=== PATIENT | female | born 1970 | race Hispanic/Latino ===

== ENCOUNTER → 2018-04-30 | Outpatient (CLI) | payer OTHER | END | disposition home or self-care (01) | LOC: RAH 07:33 | PROVIDERS: ATTEND Orthopaedic Surgery | DX: M19.011 Primary osteoarthritis, right shoulder (principal); M25.711 Osteophyte, right shoulder; M75.41 Impingement syndrome of right shoulder | CPT/HCPCS: 73221 ==

== ENCOUNTER 2018-06-22 14:20 | Emergency (ER) | payer OTHER ==
[2018-06-22] MEDS ORDERED: ONDANSETRON ODT 4 MG TAB ONE (14:42)
[2018-06-22 14:55] LABS: APPEARANCE,URINE Clear (CLEAR); BILIRUBIN,URINE Negative (NEGATIVE); COLOR,URINE Yellow (YELLOW); GLUCOSE, URINE (UA) >=1000 mg/dL (NEGATIVE); KETONES,URINE 15 mg/dL (NEGATIVE); LEUKOCYTE ESTERASE ,URINE Negative (NEGATIVE); NITRATE,URINE Negative (NEGATIVE); OCCULT BLOOD,URINE Negative (NEGATIVE); PROTEIN,URINE Negative (NEGATIVE); UROBILINOGEN,URINE 0.2 mg/dL (0.2-1.0)
== END 2018-06-22 15:53 | disposition home or self-care (01) ==
LOC: EDH 14:20
DX: K52.9 Noninfective gastroenteritis and colitis, unspecified (principal); E11.9 Type 2 diabetes mellitus without complications; Z90.710 Acquired absence of both cervix and uterus; Z98.890 Other specified postprocedural states; Z72.0 Tobacco use
CPT/HCPCS: 81003; 87804

== ENCOUNTER 2020-03-06 18:38 | Inpatient (IN) | payer OTHER ==
[~2020-03-06] VITALS: Ht 165.1 cm; Wt 98.9 kg
[2020-03-06] MEDS ORDERED: ONDANSETRON 4MG INJ ONE (19:03)
[2020-03-06] MEDS ORDERED: 0.9%NACL 1000ML 1,000 ML IV ONE (19:04)
[2020-03-06] MEDS ORDERED: ACETAMINOPHEN 325 MG TAB ONE (19:38)
[2020-03-06 19:41] LABS: BASOPHILS % (AUTO) 0.6 % (0.0-5.0); EOSINOPHILS % (AUTO) 1.5 % (0.0-8.0); HEMATOCRIT 45.9 % (36-48); LYMPHOCYTES % (AUTO) 25.2 % (21.0-51.0); MEAN CORPUSCULAR HEMOGLOBIN 28.8 pg (27.0-33.0); MEAN CORPUSCULAR HGB CONC 32.9 g/dL (32.0-36.0); MEAN CORPUSCULAR VOLUME 87.6 fL (79-99); MONOCYTES % (AUTO) 9.5 % (3.0-13.0); NEUTROPHILS % (AUTO) 62.1 % (40.0-77.0); PLATELET COUNT (AUTO) 212 K/uL (130-400); RED BLOOD CELL COUNT(AUTO) 5.24 MIL/uL (4.00-5.50); RED CELL DISTRIBUTION WIDTH 12.4 % (11.0-15.5); WHITE BLOOD COUNT (AUTO) 6.2 K/uL (4.8-10.8)
[2020-03-06 20:01] LABS: CREATININE 0.6 mg/dL (0.5-1.5); POTASSIUM 3.5 mmol/L (3.5-5.1)
[2020-03-06 20:06] LABS: BILIRUBIN,TOTAL 0.4 mg/dL (0.2-1.0); TOTAL PROTEIN, SERUM 7.2 g/dL (6.0-8.3)
[2020-03-06 20:24] LABS: APPEARANCE,URINE Clear (CLEAR); BILIRUBIN,URINE Negative (NEGATIVE); COLOR,URINE Yellow (YELLOW); GLUCOSE, URINE (UA) >=1000 mg/dL (NEGATIVE); KETONES,URINE 40 mg/dL (NEGATIVE); LEUKOCYTE ESTERASE ,URINE Negative (NEGATIVE); NITRATE,URINE Negative (NEGATIVE); OCCULT BLOOD,URINE Negative (NEGATIVE); PH,URINE 6.5 (5.0-8.0); PROTEIN,URINE Negative (NEGATIVE)
[2020-03-06 20:33] LABS: HCG,QUAL RESULT NEGATIVE (NEGATIVE)
[2020-03-06 20:45] LABS: BACTERIA,URINE Rare /HPF (None Seen); RBC,URINE 0-1 /HPF (0-1); SQUAMOUS EPITHELIAL CELL,UR Rare /HPF (0-2); WBC,URINE 0-1 /HPF (0-1); YEAST,URINE BUDDING Rare /HPF (None Seen)
[2020-03-06] MEDS ORDERED: CEFTRIAXONE 1G VIAL ONE (20:45)
[2020-03-06] MEDS ORDERED: AZITHROMYCIN 500MG+NS 250ML 250 ML IV ONE (20:45)
[2020-03-06 21:01] LABS: ABG BASE EXCESS 0.7 mmol/L (-2.0-3.0); ABG HCO3 24.7 mmol/L (21.0-28.0); ABG OXYGEN SATURATION 93.9 % (95.0-99.0); ABG PCO2 38 mmHg (32-45)
[2020-03-06] MEDS ORDERED: DEXAMETHASONE SOD PHOSPHATE 10MG/ML 1ML VIAL ONE (22:23)
[2020-03-06] MEDS ORDERED: DOXYCYCLINE 100MG+NS 250ML IV SCH (23:15)
[2020-03-06] MEDS ORDERED: LUBIPROSTONE 24 MCG CAP PO SCH (23:15)
[2020-03-06] MEDS ORDERED: ONDANSETRON 4MG INJ IV PRN (23:15)
[2020-03-06] MEDS ORDERED: DEXAMETHASONE SOD PHOSPHATE 4 MG/ML 1ML VIAL IVP SCH (23:15)
[2020-03-07] MEDS ORDERED: ERGOCALCIFEROL (VITAMIN D2) 50,000 UNIT CAPSULE ONE (00:15)
[2020-03-07] MEDS ORDERED: DOXYCYCLINE 100MG+NS 250ML 250 ML IV ONE (00:16)
[2020-03-07] MEDS ORDERED: 0.9% NACL 250ML 250 ML IV ONE (02:18)
[2020-03-07 04:39] VITALS: BP 133/80
[2020-03-07 05:30] LABS: ALBUMIN 2.7 g/dL (3.5-5.0); BILIRUBIN,TOTAL 0.3 mg/dL (0.2-1.0); CREATININE 0.6 mg/dL (0.5-1.5); CRP QUANTITATIVE 96.9 mg/L (0.00-9.0); POTASSIUM 4.4 mmol/L (3.5-5.1); TOTAL PROTEIN, SERUM 6.1 g/dL (6.0-8.3)
[2020-03-07] MEDS: INSULIN HUMULIN R 100 UNIT/ML 3ML SQ SCH ×4 (07:04→22:28)
[2020-03-07] MEDS: ZINC SULFATE 220 CAPSULE PO SCH (08:14)
[2020-03-07] MEDS: ENOXAPARIN SODIUM 40 MG/0.4 ML SYRINGE SQ SCH (08:14)
[2020-03-07] MEDS: FAMOTIDINE 20MG VIAL IV SCH ×2 (08:14→22:21)
[2020-03-07] MEDS: ASCORBIC ACID 500 MG TAB PO SCH (08:14)
[2020-03-07 08:44] LABS: HEMOGLOBIN A1C 10.1 % (4.0-6.0)
[2020-03-07 08:55] VITALS: BP 126/78
[2020-03-07] MEDS ORDERED: DOXYCYCLINE 100MG+NS 250ML 250 ML IV SCH (09:00)
[2020-03-07] MEDS: ERGOCALCIFEROL (VITAMIN D2) 50,000 UNIT CAPSULE PO SCH (09:45)
[2020-03-07 11:00] VITALS: BP 120/76
[2020-03-07 15:35] VITALS: BP 129/48
[2020-03-07] MEDS: GUAIFENESIN-CODEINE 5 ML SYRUP PO PRN ×2 (17:35→22:21)
[2020-03-07 20:02] VITALS: BP 119/70
[2020-03-07] MEDS: INSULIN GLARGINE 100 UNITS/ML 10 ML VIAL SQ SCH (22:26)
[2020-03-08] VITALS: BP 118/65
[2020-03-08] MEDS: GUAIFENESIN-CODEINE 5 ML SYRUP PO PRN ×2 (03:26→20:31)
[2020-03-08 04:11] VITALS: BP 134/61
[2020-03-08 04:26] LABS: ALBUMIN 2.9 g/dL (3.5-5.0); BILIRUBIN,TOTAL 0.3 mg/dL (0.2-1.0); CREATININE 0.8 mg/dL (0.5-1.5); CRP QUANTITATIVE 52.8 mg/L (0.00-9.0); POTASSIUM 4.8 mmol/L (3.5-5.1); TOTAL PROTEIN, SERUM 7.2 g/dL (6.0-8.3)
[2020-03-08] MEDS: INSULIN HUMULIN R 100 UNIT/ML 3ML SQ SCH ×7 (06:43→20:42)
[2020-03-08 07:00] VITALS: BP 111/62
[2020-03-08] MEDS ORDERED: PHARMACY COMMUNICATION MISC SCH ×3 (07:30→21:30)
[2020-03-08] MEDS: ERGOCALCIFEROL (VITAMIN D2) 50,000 UNIT CAPSULE PO SCH (08:57)
[2020-03-08] MEDS: FAMOTIDINE 20MG VIAL IV SCH ×2 (08:58→20:31)
[2020-03-08] MEDS: ENOXAPARIN SODIUM 40 MG/0.4 ML SYRINGE SQ SCH (08:59)
[2020-03-08] MEDS: ZINC SULFATE 220 CAPSULE PO SCH (08:59)
[2020-03-08] MEDS: ASCORBIC ACID 500 MG TAB PO SCH (09:00)
[2020-03-08] MEDS ORDERED: AMOX1TAB16 PO (09:21)
[2020-03-08] MEDS ORDERED: ATOR10TA69 PO (09:21)
[2020-03-08] MEDS ORDERED: GLYB5TAB9 PO (09:21)
[2020-03-08] MEDS ORDERED: DAPA10TA PO (09:21)
[2020-03-08] MEDS ORDERED: METF-446 PO (09:21)
[2020-03-08] MEDS ORDERED: INSULIN GLARGINE 100 UNITS/ML 10 ML VIAL SQ SCH (09:49)
[2020-03-08 11:00] VITALS: BP 118/73
[2020-03-08 16:00] VITALS: BP 150/95
[2020-03-08 20:00] VITALS: BP 128/84
[2020-03-08] MEDS: INSULIN GLARGINE 100 UNITS/ML 10 ML VIAL SQ SCH (20:37)
[2020-03-09] VITALS (7 sets, daily range): BP systolic 94–148; BP diastolic 55–88
[2020-03-09] MEDS: GUAIFENESIN-CODEINE 5 ML SYRUP PO PRN ×2 (04:45→20:30)
[2020-03-09 05:01] LABS: BASOPHILS % (AUTO) 0.7 % (0.0-5.0); EOSINOPHILS % (AUTO) 0.5 % (0.0-8.0); HEMATOCRIT 42.3 % (36-48); LYMPHOCYTES % (AUTO) 34.3 % (21.0-51.0); MEAN CORPUSCULAR HEMOGLOBIN 29.1 pg (27.0-33.0); MEAN CORPUSCULAR HGB CONC 32.9 g/dL (32.0-36.0); MEAN CORPUSCULAR VOLUME 88.5 fL (79-99); MONOCYTES % (AUTO) 11.2 % (3.0-13.0); NEUTROPHILS % (AUTO) 51.1 % (40.0-77.0); PLATELET COUNT (AUTO) 306 K/uL (130-400); RED BLOOD CELL COUNT(AUTO) 4.78 MIL/uL (4.00-5.50); RED CELL DISTRIBUTION WIDTH 12.5 % (11.0-15.5); WHITE BLOOD COUNT (AUTO) 7.4 K/uL (4.8-10.8)
[2020-03-09 05:22] LABS: ALBUMIN 2.7 g/dL (3.5-5.0); BILIRUBIN,TOTAL 0.2 mg/dL (0.2-1.0); CREATININE 0.7 mg/dL (0.5-1.5); CRP QUANTITATIVE 29.9 mg/L (0.00-9.0); POTASSIUM 3.7 mmol/L (3.5-5.1); TOTAL PROTEIN, SERUM 6.7 g/dL (6.0-8.3)
[2020-03-09] MEDS: INSULIN HUMULIN R 100 UNIT/ML 3ML SQ SCH ×6 (06:22→20:27)
[2020-03-09] MEDS ORDERED: INSULIN HUMULIN R 100 UNIT/ML 3ML SQ SCH (07:30)
[2020-03-09] MEDS: INSULIN GLARGINE 100 UNITS/ML 10 ML VIAL SQ SCH ×2 (08:00→20:33)
[2020-03-09] MEDS ORDERED: INSULIN GLARGINE 100 UNITS/ML 10 ML VIAL SQ SCH (08:00)
[2020-03-09] MEDS: FAMOTIDINE 20MG VIAL IV SCH ×2 (09:22→20:30)
[2020-03-09] MEDS: ASCORBIC ACID 500 MG TAB PO SCH (09:22)
[2020-03-09] MEDS: ENOXAPARIN SODIUM 40 MG/0.4 ML SYRINGE SQ SCH (09:22)
[2020-03-09] MEDS: ZINC SULFATE 220 CAPSULE PO SCH (09:22)
[2020-03-09] MEDS ORDERED: COMPOUND IV REFRIGERATED 1 EACH IVSOLN MISC PRN (14:00)
[2020-03-09] MEDS ORDERED: REMDESIVIR (EUA) 520 200 MG in 0.9% NACL 250ML 250 ML IV ONE (14:00)
[2020-03-10] VITALS (7 sets, daily range): BP systolic 130–157; BP diastolic 73–91
[2020-03-10 05:31] LABS: BASOPHILS % (AUTO) 0.8 % (0.0-5.0); EOSINOPHILS % (AUTO) 1.5 % (0.0-8.0); HEMATOCRIT 42.8 % (36-48); LYMPHOCYTES % (AUTO) 34.7 % (21.0-51.0); MEAN CORPUSCULAR HEMOGLOBIN 28.5 pg (27.0-33.0); MEAN CORPUSCULAR HGB CONC 32.5 g/dL (32.0-36.0); MEAN CORPUSCULAR VOLUME 87.9 fL (79-99); MONOCYTES % (AUTO) 15.2 % (3.0-13.0); NEUTROPHILS % (AUTO) 44.7 % (40.0-77.0); PLATELET COUNT (AUTO) 309 K/uL (130-400); RED BLOOD CELL COUNT(AUTO) 4.87 MIL/uL (4.00-5.50); RED CELL DISTRIBUTION WIDTH 12.6 % (11.0-15.5); WHITE BLOOD COUNT (AUTO) 6.2 K/uL (4.8-10.8)
[2020-03-10] MEDS: PHARMACY COMMUNICATION MISC SCH (06:00)
[2020-03-10] MEDS: INSULIN HUMULIN R 100 UNIT/ML 3ML SQ SCH ×7 (06:10→20:54)
[2020-03-10 06:15] LABS: ALBUMIN 2.5 g/dL (3.5-5.0); BILIRUBIN,TOTAL 0.2 mg/dL (0.2-1.0); CREATININE 0.6 mg/dL (0.5-1.5); CRP QUANTITATIVE 24.3 mg/L (0.00-9.0); POTASSIUM 3.6 mmol/L (3.5-5.1); TOTAL PROTEIN, SERUM 6.1 g/dL (6.0-8.3)
[2020-03-10] MEDS: DEXAMETHASONE SOD PHOSPHATE 4 MG/ML 1ML VIAL IVP SCH (09:23)
[2020-03-10] MEDS: ASCORBIC ACID 500 MG TAB PO SCH (09:24)
[2020-03-10] MEDS: FAMOTIDINE 20MG VIAL IV SCH ×2 (09:24→20:43)
[2020-03-10] MEDS: ZINC SULFATE 220 CAPSULE PO SCH (09:24)
[2020-03-10] MEDS: ENOXAPARIN SODIUM 40 MG/0.4 ML SYRINGE SQ SCH (09:24)
[2020-03-10] MEDS: INSULIN GLARGINE 100 UNITS/ML 10 ML VIAL SQ SCH (09:26)
[2020-03-10] MEDS: REMDESIVIR (EUA) 520 100 MG in 0.9% NACL 250ML 250 ML IV SCH (14:36)
[2020-03-10] MEDS ORDERED: POTASSIUM CHLORIDE 10% ELIXIR 20 MEQ/15 ML UDCUP PO SCH (15:15)
[2020-03-10] MEDS: MAGNESIUM 2GM PREMIX 50ML 50 ML IV SCH (17:13)
[2020-03-10] MEDS ORDERED: INSULIN GLARGINE 100 UNITS/ML 10 ML VIAL SQ SCH (21:00)
[2020-03-11 03:25] VITALS: BP 126/59
[2020-03-11 05:12] LABS: ALBUMIN 2.5 g/dL (3.5-5.0); BILIRUBIN,DIRECT 0.1 mg/dL (0.0-0.3); BILIRUBIN,TOTAL 0.2 mg/dL (0.2-1.0); CREATININE 0.6 mg/dL (0.5-1.5); MAGNESIUM 1.9 mg/dL (1.80-2.40); POTASSIUM 3.6 mmol/L (3.5-5.1)
[2020-03-11] MEDS: MAGNESIUM 2GM PREMIX 50ML 50 ML IV SCH (05:27)
[2020-03-11 05:48] LABS: CRP QUANTITATIVE 24.5 mg/L (0.00-9.0)
[2020-03-11 05:55] LABS: BASOPHILS % (AUTO) 0.4 % (0.0-5.0); EOSINOPHILS % (AUTO) 0.3 % (0.0-8.0); HEMATOCRIT 38.6 % (36-48); LYMPHOCYTES % (AUTO) 22.6 % (21.0-51.0); MEAN CORPUSCULAR HEMOGLOBIN 28.7 pg (27.0-33.0); MEAN CORPUSCULAR HGB CONC 33.2 g/dL (32.0-36.0); MEAN CORPUSCULAR VOLUME 86.5 fL (79-99); MONOCYTES % (AUTO) 11.9 % (3.0-13.0); NEUTROPHILS % (AUTO) 62.4 % (40.0-77.0); PLATELET COUNT (AUTO) 334 K/uL (130-400); RED BLOOD CELL COUNT(AUTO) 4.46 MIL/uL (4.00-5.50); RED CELL DISTRIBUTION WIDTH 12.5 % (11.0-15.5); WHITE BLOOD COUNT (AUTO) 9.6 K/uL (4.8-10.8)
[2020-03-11] MEDS: PHARMACY COMMUNICATION MISC SCH (06:00)
[2020-03-11] MEDS: INSULIN HUMULIN R 100 UNIT/ML 3ML SQ SCH ×4 (06:47→22:13)
[2020-03-11] MEDS ORDERED: INSULIN HUMULIN R 100 UNIT/ML 3ML SQ SCH ×3 (07:00→17:00)
[2020-03-11 08:00] VITALS: BP 107/73
[2020-03-11] MEDS ORDERED: INSULIN GLARGINE 100 UNITS/ML 10 ML VIAL SQ SCH ×2 (08:00→21:00)
[2020-03-11] MEDS: ZINC SULFATE 220 CAPSULE PO SCH (08:55)
[2020-03-11] MEDS: DEXAMETHASONE SOD PHOSPHATE 4 MG/ML 1ML VIAL IVP SCH (08:55)
[2020-03-11] MEDS: ASCORBIC ACID 500 MG TAB PO SCH (08:55)
[2020-03-11] MEDS: FAMOTIDINE 20MG VIAL IV SCH ×2 (08:55→22:05)
[2020-03-11] MEDS: ENOXAPARIN SODIUM 40 MG/0.4 ML SYRINGE SQ SCH (08:56)
[2020-03-11] MEDS ORDERED: POTASSIUM CHLORIDE 10MEQ SR TAB PO SCH (11:45)
[2020-03-11] MEDS ORDERED: AMOX/CLAV 875/125MG TAB PO SCH (11:45)
[2020-03-11 12:00] VITALS: BP 130/73
[2020-03-11] MEDS: REMDESIVIR (EUA) 520 100 MG in 0.9% NACL 250ML 250 ML IV SCH (14:32)
[2020-03-11 16:00] VITALS: BP 127/70
[2020-03-11 20:00] VITALS: BP 141/68
[2020-03-11] MEDS: GUAIFENESIN-CODEINE 5 ML SYRUP PO PRN (22:04)
[2020-03-11] MEDS: AMOX/CLAV 875/125MG TAB PO SCH (22:05)
[2020-03-12] VITALS: BP 134/73
[2020-03-12 03:51] VITALS: BP 134/73
[2020-03-12 05:23] LABS: BASOPHILS % (AUTO) 0.5 % (0.0-5.0); EOSINOPHILS % (AUTO) 0.2 % (0.0-8.0); HEMATOCRIT 37.6 % (36-48); LYMPHOCYTES % (AUTO) 25.3 % (21.0-51.0); MEAN CORPUSCULAR HEMOGLOBIN 29.2 pg (27.0-33.0); MEAN CORPUSCULAR HGB CONC 33.5 g/dL (32.0-36.0); MONOCYTES % (AUTO) 8.9 % (3.0-13.0); NEUTROPHILS % (AUTO) 62.2 % (40.0-77.0); PLATELET COUNT (AUTO) 332 K/uL (130-400); RED BLOOD CELL COUNT(AUTO) 4.32 MIL/uL (4.00-5.50); RED CELL DISTRIBUTION WIDTH 12.6 % (11.0-15.5); WHITE BLOOD COUNT (AUTO) 11.1 K/uL (4.8-10.8)
[2020-03-12 05:45] LABS: ALBUMIN 2.5 g/dL (3.5-5.0); BILIRUBIN,TOTAL 0.2 mg/dL (0.2-1.0); CREATININE 0.6 mg/dL (0.5-1.5); CRP QUANTITATIVE 11.7 mg/L (0.00-9.0); POTASSIUM 3.9 mmol/L (3.5-5.1); TOTAL PROTEIN, SERUM 5.8 g/dL (6.0-8.3)
[2020-03-12] MEDS: INSULIN HUMULIN R 100 UNIT/ML 3ML SQ SCH ×8 (07:30→21:12)
[2020-03-12 07:38] VITALS: BP 115/65
[2020-03-12] MEDS: INSULIN GLARGINE 100 UNITS/ML 10 ML VIAL SQ SCH (08:00)
[2020-03-12] MEDS: DEXAMETHASONE SOD PHOSPHATE 4 MG/ML 1ML VIAL IVP SCH (08:37)
[2020-03-12] MEDS: AMOX/CLAV 875/125MG TAB PO SCH ×2 (08:37→20:59)
[2020-03-12] MEDS: ZINC SULFATE 220 CAPSULE PO SCH (08:37)
[2020-03-12] MEDS: FAMOTIDINE 20MG VIAL IV SCH ×2 (08:38→21:00)
[2020-03-12] MEDS: ASCORBIC ACID 500 MG TAB PO SCH (08:38)
[2020-03-12] MEDS: ENOXAPARIN SODIUM 40 MG/0.4 ML SYRINGE SQ SCH (08:38)
[2020-03-12 10:46] VITALS: BP 115/57
[2020-03-12] MEDS: REMDESIVIR (EUA) 520 100 MG in 0.9% NACL 250ML 250 ML IV SCH (14:49)
[2020-03-12 15:30] VITALS: BP 123/67
[2020-03-12 20:38] VITALS: BP 148/78
[2020-03-12] MEDS ORDERED: INSULIN GLARGINE 100 UNITS/ML 10 ML VIAL SQ SCH (21:00)
[2020-03-12] MEDS: GUAIFENESIN-CODEINE 5 ML SYRUP PO PRN (22:45)
[2020-03-13 00:22] VITALS: BP 134/70
[2020-03-13 03:51] VITALS: BP 130/62
[2020-03-13 05:56] LABS: BASOPHILS % (AUTO) 0.3 % (0.0-5.0); EOSINOPHILS % (AUTO) 0.1 % (0.0-8.0); HEMATOCRIT 40.9 % (36-48); MEAN CORPUSCULAR HEMOGLOBIN 28.4 pg (27.0-33.0); MEAN CORPUSCULAR HGB CONC 32.5 g/dL (32.0-36.0); MEAN CORPUSCULAR VOLUME 87.4 fL (79-99); NEUTROPHILS % (AUTO) 63.3 % (40.0-77.0); PLATELET COUNT (AUTO) 397 K/uL (130-400); RED BLOOD CELL COUNT(AUTO) 4.68 MIL/uL (4.00-5.50); RED CELL DISTRIBUTION WIDTH 12.7 % (11.0-15.5); WHITE BLOOD COUNT (AUTO) 11.6 K/uL (4.8-10.8)
[2020-03-13] MEDS: INSULIN HUMULIN R 100 UNIT/ML 3ML SQ SCH ×6 (06:51→17:17)
[2020-03-13 06:59] LABS: ALBUMIN 2.7 g/dL (3.5-5.0); BILIRUBIN,TOTAL 0.3 mg/dL (0.2-1.0); CREATININE 0.6 mg/dL (0.5-1.5); CRP QUANTITATIVE 7.1 mg/L (0.00-9.0); POTASSIUM 3.6 mmol/L (3.5-5.1); TOTAL PROTEIN, SERUM 6.5 g/dL (6.0-8.3)
[2020-03-13] MEDS: INSULIN GLARGINE 100 UNITS/ML 10 ML VIAL SQ SCH (07:35)
[2020-03-13] MEDS: ASCORBIC ACID 500 MG TAB PO SCH (07:36)
[2020-03-13] MEDS: DEXAMETHASONE SOD PHOSPHATE 4 MG/ML 1ML VIAL IVP SCH (07:36)
[2020-03-13] MEDS: FAMOTIDINE 20MG VIAL IV SCH (07:36)
[2020-03-13] MEDS: ZINC SULFATE 220 CAPSULE PO SCH (07:36)
[2020-03-13] MEDS: AMOX/CLAV 875/125MG TAB PO SCH (07:36)
[2020-03-13] MEDS: ENOXAPARIN SODIUM 40 MG/0.4 ML SYRINGE SQ SCH (07:37)
[2020-03-13 08:00] VITALS: BP 132/68
[2020-03-13] MEDS ORDERED: KCL 20 MEQ ERTAB PO SCH (08:00)
[2020-03-13] MEDS ORDERED: KCL 20 MEQ ERTAB PO ONE (08:09)
[2020-03-13 12:00] VITALS: BP 128/67
[2020-03-13] MEDS ORDERED: APIX2.5T PO (14:03)
[2020-03-13] MEDS ORDERED: DEXA6TAB PO (14:03)
[2020-03-13] MEDS: REMDESIVIR (EUA) 520 100 MG in 0.9% NACL 250ML 250 ML IV SCH (14:34)
[2020-03-13 16:00] VITALS: BP 128/60
== END 2020-03-13 18:49 | disposition home or self-care (01) | DRG 177 ==
LOC: EDH 18:38 → EDHIP 23:12 → 2AH 03-07 04:00
PROVIDERS: ADMIT Internal Medicine; ATTEND Internal Medicine
PROC: XW13325 Transfusion of Convalescent Plasma (Nonautologous) into Peripheral Vein, Percutaneous Approach, New Technology Group 5 (ICD-10-PCS; 2020-03-07)
PROC: XW033E5 Introduction of Remdesivir Anti-infective into Peripheral Vein, Percutaneous Approach, New Technology Group 5 (ICD-10-PCS; principal; 2020-03-09)
DX: U07.1 COVID-19 (principal); J12.82 Pneumonia due to coronavirus disease 2019; J96.01 Acute respiratory failure with hypoxia; E11.65 Type 2 diabetes mellitus with hyperglycemia; E78.5 Hyperlipidemia, unspecified; T38.0X5A Adverse effect of glucocorticoids and synthetic analogues, initial encounter; H92.01 Otalgia, right ear; Y92.239 Unspecified place in hospital as the place of occurrence of the external cause; Z90.710 Acquired absence of both cervix and uterus; Z79.84 Long term (current) use of oral hypoglycemic drugs
CPT/HCPCS: 36415; 36430; 36600; 71045; 80048; 80053; 80076; 81001; 81025; 82728; 82803; 82948; 83036; 83605; 83615; 83690; 83735; 83880; 84145; 85025; 85378; 86140; 86850; 86900; 86901; 86927; 87040; 87426; 93005; 94760; 99291; G0378; J0456; J0696; J1100; J1650; J1815; J2405; J3475; J3490; J7030; J7050

== ENCOUNTER 2020-04-02 21:29 | Emergency (ER) | payer OTHER ==
[~2020-04-02 21:29] MED LIST: AMOX1TAB16 PO; APIX2.5T PO; ATOR10TA69 PO; DAPA10TA PO; DEXA6TAB PO; GLYB5TAB9 PO; METF-446 PO
[2020-04-02 22:01] LABS: BASOPHILS % (AUTO) 0.8 % (0.0-5.0); EOSINOPHILS % (AUTO) 1.3 % (0.0-8.0); HEMATOCRIT 43.5 % (36-48); LYMPHOCYTES % (AUTO) 32.4 % (21.0-51.0); MEAN CORPUSCULAR HEMOGLOBIN 29.1 pg (27.0-33.0); MEAN CORPUSCULAR HGB CONC 33.1 g/dL (32.0-36.0); MEAN CORPUSCULAR VOLUME 87.9 fL (79-99); MONOCYTES % (AUTO) 8.2 % (3.0-13.0); NEUTROPHILS % (AUTO) 56.8 % (40.0-77.0); PLATELET COUNT (AUTO) 193 K/uL (130-400); RED BLOOD CELL COUNT(AUTO) 4.95 MIL/uL (4.00-5.50); RED CELL DISTRIBUTION WIDTH 13.2 % (11.0-15.5); WHITE BLOOD COUNT (AUTO) 7.5 K/uL (4.8-10.8)
[2020-04-02 22:11] LABS: CREATININE 0.7 mg/dL (0.5-1.5); POTASSIUM 3.7 mmol/L (3.5-5.1)
[2020-04-02 22:16] LABS: ALBUMIN 3.8 g/dL (3.5-5.0); BILIRUBIN,TOTAL 0.3 mg/dL (0.2-1.0); TOTAL PROTEIN, SERUM 7.4 g/dL (6.0-8.3)
== END 2020-04-02 22:58 | disposition home or self-care (01) ==
LOC: EDH 21:29
DX: I10 Essential (primary) hypertension (principal); E11.65 Type 2 diabetes mellitus with hyperglycemia; E66.9 Obesity, unspecified; R42 Dizziness and giddiness; Z68.34 Body mass index [BMI] 34.0-34.9, adult
CPT/HCPCS: 36415; 71045; 80053; 82948; 84484; 85025; 93005

== ENCOUNTER 2020-08-22 23:36 | Emergency (ER) | payer OTHER | END 2020-08-23 00:52 | disposition left against medical advice (07) | LOC: EDH 23:36 | DX: R05 Cough (principal); Z53.21 Procedure and treatment not carried out due to patient leaving prior to being seen by health care provider ==

== ENCOUNTER 2021-03-19 22:51 | Emergency (ER) | payer BC, OTHER ==
[~2021-03-19] VITALS: Ht 165.1 cm; Wt 98.4 kg
[2021-03-19 22:52] VITALS: BP 142/76
[2021-03-19 23:30] LABS: INFLUENZA TYPE A NEGATIVE FOR TYPE A (NEG); INFLUENZA TYPE B NEGATIVE FOR TYPE B (NEG)
== END 2021-03-20 | disposition home or self-care (01) ==
LOC: EDH 22:51
DX: B34.9 Viral infection, unspecified (principal); Z20.822 Contact with and (suspected) exposure to COVID-19; E11.9 Type 2 diabetes mellitus without complications; Z79.01 Long term (current) use of anticoagulants; Z79.52 Long term (current) use of systemic steroids; Z79.84 Long term (current) use of oral hypoglycemic drugs
CPT/HCPCS: 87635; 87804 ×2; 87880; 99283; C9803

== ENCOUNTER 2021-05-17 10:45 | Emergency (ER) | payer BC ==
[~2021-05-17] VITALS: Ht 165.1 cm; Wt 91.6 kg
[2021-05-17 11:14] LABS: BASOPHILS % (AUTO) 0.5 % (0.0-5.0); HEMATOCRIT 48.7 % (36-48); LYMPHOCYTES % (AUTO) 8.7 % (21.0-51.0); MEAN CORPUSCULAR HEMOGLOBIN 29.6 pg (27.0-33.0); MEAN CORPUSCULAR HGB CONC 33.9 g/dL (32.0-36.0); MEAN CORPUSCULAR VOLUME 87.3 fL (79-99); MONOCYTES % (AUTO) 7.4 % (3.0-13.0); NEUTROPHILS % (AUTO) 82.6 % (40.0-77.0); PLATELET COUNT (AUTO) 280 K/uL (130-400); RED BLOOD CELL COUNT(AUTO) 5.58 MIL/uL (4.00-5.50); RED CELL DISTRIBUTION WIDTH 12.9 % (11.0-15.5); WHITE BLOOD COUNT (AUTO) 20.3 K/uL (4.8-10.8)
[2021-05-17] MEDS ORDERED: 0.9%NACL 1000ML 1,000 ML IV SCH (11:30)
[2021-05-17] MEDS ORDERED: ONDANSETRON 4MG INJ IVP SCH (11:30)
[2021-05-17 11:32] LABS: ALBUMIN 4.2 g/dL (3.5-5.0); BILIRUBIN,TOTAL 0.4 mg/dL (0.2-1.0); CREATININE 0.8 mg/dL (0.5-1.5); POTASSIUM 3.9 mmol/L (3.5-5.1); TOTAL PROTEIN, SERUM 8.4 g/dL (6.0-8.3)
[2021-05-17] MEDS: ONDANSETRON 4MG INJ ONE ×2 (12:16→12:17)
[2021-05-17] MEDS ORDERED: ONDA4TAB10 PO (12:54)
[2021-05-17 12:59] VITALS: BP 128/80
== END 2021-05-17 13:09 | disposition home or self-care (01) ==
LOC: EDH 10:45
DX: E86.9 Volume depletion, unspecified (principal); R11.10 Vomiting, unspecified; Z20.822 Contact with and (suspected) exposure to COVID-19; E11.9 Type 2 diabetes mellitus without complications; Z79.01 Long term (current) use of anticoagulants; Z79.52 Long term (current) use of systemic steroids; Z79.84 Long term (current) use of oral hypoglycemic drugs
CPT/HCPCS: 36415; 71045; 80053; 83690; 84484; 85025; 87635; 87804 ×2; 87880; 93005; 96361; 96374; 99284; C9803; J2405; J7030

== ENCOUNTER 2021-06-28 23:44 | Emergency (ER) | payer BC ==
[~2021-06-28] VITALS: Ht 165.1 cm; Wt 95.3 kg
[~2021-06-28 23:44] MED LIST changes: +ONDA4TAB10 PO
[2021-06-28 23:48] VITALS: BP 176/91
[2021-06-29] MEDS ORDERED: LACT10PA5 PO (20:50)
== END 2021-06-29 02:35 | disposition left against medical advice (07) ==
LOC: EDH 23:44
DX: R10.9 Unspecified abdominal pain (principal); Z53.21 Procedure and treatment not carried out due to patient leaving prior to being seen by health care provider

== ENCOUNTER 2021-06-29 19:09 | Emergency (ER) | payer BC ==
[~2021-06-29] VITALS: Ht 165.1 cm; Wt 95.3 kg
[2021-06-29 20:00] LABS: BASOPHILS % (AUTO) 0.8 % (0.0-5.0); EOSINOPHILS % (AUTO) 0.6 % (0.0-8.0); HEMATOCRIT 41.9 % (36-48); MEAN CORPUSCULAR HEMOGLOBIN 30.2 pg (27.0-33.0); MEAN CORPUSCULAR HGB CONC 34.6 g/dL (32.0-36.0); MEAN CORPUSCULAR VOLUME 87.3 fL (79-99); NEUTROPHILS % (AUTO) 74.1 % (40.0-77.0); PLATELET COUNT (AUTO) 221 K/uL (130-400); RED CELL DISTRIBUTION WIDTH 13.3 % (11.0-15.5); WHITE BLOOD COUNT (AUTO) 10.6 K/uL (4.8-10.8)
[2021-06-29] MEDS ORDERED: KETOROLAC 30MG VIAL (30MG/ML) IM ONE (20:00)
[2021-06-29] MEDS ORDERED: ONDANSETRON 4MG INJ IVP ONE (20:00)
[2021-06-29 20:16] LABS: ALBUMIN 3.5 g/dL (3.5-5.0); BILIRUBIN,TOTAL 0.5 mg/dL (0.2-1.0); POTASSIUM 3.6 mmol/L (3.5-5.1); TOTAL PROTEIN, SERUM 7.1 g/dL (6.0-8.3)
[2021-06-29 20:19] LABS: APPEARANCE,URINE Cloudy (CLEAR); BILIRUBIN,URINE Negative (NEGATIVE); COLOR,URINE Yellow (YELLOW); GLUCOSE, URINE (UA) >=1000 mg/dL (NEGATIVE); KETONES,URINE >=80 mg/dL (NEGATIVE); LEUKOCYTE ESTERASE ,URINE Small (NEGATIVE); NITRATE,URINE Negative (NEGATIVE); OCCULT BLOOD,URINE Moderate (NEGATIVE); PH,URINE 5.5 (5.0-8.0); PROTEIN,URINE Trace mg/dL (NEGATIVE); UROBILINOGEN,URINE 0.2 mg/dL (0.2-1.0)
[2021-06-29] MEDS ORDERED: 0.9%NACL 1000ML 1,000 ML IV SCH (20:30)
[2021-06-29] MEDS ORDERED: INSULIN HUMULIN R 100 UNIT/ML 3ML IV ONE (20:30)
[2021-06-29 20:31] LABS: BACTERIA,URINE Rare /HPF (None Seen); MUCUS,URINE Few LPF (None Seen); SQUAMOUS EPITHELIAL CELL,UR Rare /HPF (0-2)
[2021-06-29 20:48] LABS: CREATININE 0.8 mg/dL (0.5-1.5)
[2021-06-29] MEDS ORDERED: LACT10PA5 PO (20:50)
[2021-06-29] MEDS ORDERED: MAGNESIUM CITRATE 296 ML SOLUTION PO ONE (21:00)
[2021-06-29] MEDS ORDERED: LACTULOSE 20 GM/30 ML UDCUP PO ONE (21:00)
[2021-06-29 21:23] VITALS: BP 147/65
== END 2021-06-29 21:40 | disposition home or self-care (01) ==
LOC: EDH 19:09
DX: R10.32 Left lower quadrant pain (principal); K59.00 Constipation, unspecified; E11.65 Type 2 diabetes mellitus with hyperglycemia; E66.9 Obesity, unspecified; Z90.710 Acquired absence of both cervix and uterus; Z90.89 Acquired absence of other organs; Z79.899 Other long term (current) drug therapy; Z79.84 Long term (current) use of oral hypoglycemic drugs
CPT/HCPCS: 36415; 74176; 80053; 81001; 83690; 85025; 96372; 96374; 96375; 99284; J1815; J1885; J2405; J7030

== ENCOUNTER 2021-09-30 14:23 | Emergency (ER) | payer BC ==
[~2021-09-30] VITALS: Ht 165.1 cm; Wt 90.7 kg
[~2021-09-30 14:23] MED LIST changes: +LACT10PA5 PO
[2021-09-30 14:57] LABS: BASOPHILS % (AUTO) 0.9 % (0.0-5.0); EOSINOPHILS % (AUTO) 0.7 % (0.0-8.0); HEMATOCRIT 45.5 % (36-48); LYMPHOCYTES % (AUTO) 19.3 % (21.0-51.0); MEAN CORPUSCULAR HEMOGLOBIN 29.8 pg (27.0-33.0); MEAN CORPUSCULAR HGB CONC 34.1 g/dL (32.0-36.0); MEAN CORPUSCULAR VOLUME 87.3 fL (79-99); NEUTROPHILS % (AUTO) 70.5 % (40.0-77.0); PLATELET COUNT (AUTO) 225 K/uL (130-400); RED BLOOD CELL COUNT(AUTO) 5.21 MIL/uL (4.00-5.50); RED CELL DISTRIBUTION WIDTH 13.3 % (11.0-15.5); WHITE BLOOD COUNT (AUTO) 8.8 K/uL (4.8-10.8)
[2021-09-30 14:58] LABS: APPEARANCE,URINE CLEAR (CLEAR); BILIRUBIN,URINE NEGATIVE (NEGATIVE); COLOR,URINE YELLOW (YELLOW); GLUCOSE, URINE (UA) >=1000 mg/dL (NEGATIVE); KETONES,URINE 40 mg/dL (NEGATIVE); LEUKOCYTE ESTERASE ,URINE NEGATIVE (NEGATIVE); NITRATE,URINE NEGATIVE (NEGATIVE); OCCULT BLOOD,URINE NEGATIVE (NEGATIVE); PH,URINE 5.5 (5.0-8.0); PROTEIN,URINE NEGATIVE (NEGATIVE); UROBILINOGEN,URINE 0.2 mg/dL (0.2-1.0)
[2021-09-30] MEDS ORDERED: ONDANSETRON 4MG INJ IVP ONE (15:00)
[2021-09-30] MEDS ORDERED: 0.9%NACL 1000ML 1,000 ML IV SCH (15:00)
[2021-09-30] MEDS ORDERED: INSULIN HUMULIN R 100 UNIT/ML 3ML IV ONE (15:00)
[2021-09-30 15:05] LABS: BACTERIA,URINE Few /HPF (None Seen); CREATININE 0.7 mg/dL (0.5-1.5); MUCUS,URINE Few LPF (None Seen); POTASSIUM 4.3 mmol/L (3.5-5.1); SQUAMOUS EPITHELIAL CELL,UR Moderate /HPF (0-2)
[2021-09-30 15:09] LABS: ALBUMIN 3.6 g/dL (3.5-5.0); TOTAL PROTEIN, SERUM 7.4 g/dL (6.0-8.3)
[2021-09-30] MEDS ORDERED: METRONIDAZOLE 500 MG TABLET PO SCH (15:30)
[2021-09-30] MEDS ORDERED: LEVOFLOXACIN 500 MG TABLET PO SCH (15:30)
[2021-09-30 15:32] VITALS: BP 120/84
[2021-09-30] MEDS ORDERED: LEVO-70 PO (16:15)
[2021-09-30] MEDS ORDERED: METR375C2 PO (16:15)
== END 2021-09-30 16:20 | disposition home or self-care (01) ==
LOC: EDH 14:23
DX: K52.9 Noninfective gastroenteritis and colitis, unspecified (principal); N39.0 Urinary tract infection, site not specified; I95.1 Orthostatic hypotension; E11.65 Type 2 diabetes mellitus with hyperglycemia; Z20.822 Contact with and (suspected) exposure to COVID-19; E66.9 Obesity, unspecified; Z79.01 Long term (current) use of anticoagulants; Z79.52 Long term (current) use of systemic steroids; Z79.84 Long term (current) use of oral hypoglycemic drugs; Z88.8 Allergy status to other drugs, medicaments and biological substances; Z68.33 Body mass index [BMI] 33.0-33.9, adult
CPT/HCPCS: 96374; 99284; 87635; 96361; 96375; 80053; 83690; 85025; 82948 ×2; 81001; 36415; J1815; C9803; J7030; J2405

== ENCOUNTER → 2021-10-04 | Outpatient (CLI) | payer BC ==
[~2021-10-04] MED LIST changes: +LEVO-70 PO; +METR375C2 PO
== END | disposition home or self-care (01) ==
LOC: RAH 15:41
PROVIDERS: ATTEND Nurse Practitioner Family
DX: Z12.31 Encounter for screening mammogram for malignant neoplasm of breast (principal)
CPT/HCPCS: 77067

== ENCOUNTER 2022-04-08 16:00 | Emergency (ER) | payer BC ==
[~2022-04-08] VITALS: Ht 165.1 cm; Wt 86.2 kg
[2022-04-08 17:51] LABS: EOSINOPHILS % (AUTO) 1.2 % (0.0-8.0); HEMATOCRIT 46.2 % (36-48); LYMPHOCYTES % (AUTO) 32.6 % (21.0-51.0); MEAN CORPUSCULAR HEMOGLOBIN 29.6 pg (27.0-33.0); MEAN CORPUSCULAR HGB CONC 33.3 g/dL (32.0-36.0); MEAN CORPUSCULAR VOLUME 88.7 fL (79-99); MONOCYTES % (AUTO) 8.8 % (3.0-13.0); PLATELET COUNT (AUTO) 257 K/uL (130-400); RED BLOOD CELL COUNT(AUTO) 5.21 MIL/uL (4.00-5.50); WHITE BLOOD COUNT (AUTO) 8.1 K/uL (4.8-10.8)
[2022-04-08 18:00] LABS: CREATININE 0.6 mg/dL (0.5-1.5)
[2022-04-08 18:05] LABS: ALBUMIN 4.1 g/dL (3.5-5.0); TOTAL PROTEIN, SERUM 7.8 g/dL (6.0-8.3)
[2022-04-08] MEDS ORDERED: 0.9%NACL 1000ML 1,000 ML IV ONE (18:30)
[2022-04-08] MEDS ORDERED: ONDANSETRON 4MG INJ IVP ONE (18:30)
[2022-04-08 19:59] LABS: APPEARANCE,URINE CLEAR (CLEAR); BILIRUBIN,URINE NEGATIVE (NEGATIVE); COLOR,URINE LIGHT-YELLOW (YELLOW); GLUCOSE, URINE (UA) >=1000 mg/dL (NEGATIVE); KETONES,URINE 10 mg/dL (NEGATIVE); LEUKOCYTE ESTERASE ,URINE NEGATIVE Leu/uL (NEGATIVE); NITRATE,URINE NEGATIVE (NEGATIVE); OCCULT BLOOD,URINE NEGATIVE (NEGATIVE); PROTEIN,URINE NEGATIVE (NEGATIVE); UROBILINOGEN,URINE 0.2 mg/dL (0.2-1.0)
[2022-04-08 20:01] LABS: BACTERIA,URINE RARE /HPF (None Seen); MUCUS,URINE RARE LPF (None Seen); SQUAMOUS EPITHELIAL CELL,UR RARE /HPF (0-2); YEAST,URINE BUDDING RARE /HPF (None Seen)
[2022-04-08 20:05] LABS: AMPHET/METH SCREEN,URINE NEGATIVE (NEGATIVE); BARBITURATE SCREEN, URINE NEGATIVE (NEGATIVE); BENZODIAZEPINES SCREEN,URINE NEGATIVE (NEGATIVE); CANNABINOID SCREEN,URINE NEGATIVE (NEGATIVE); COCAINE SCREEN,URINE POSITIVE (NEGATIVE); OPIATE SCREEN,URINE NEGATIVE (NEGATIVE); PHENCYCLIDINE SCREEN,URINE NEGATIVE (NEGATIVE)
[2022-04-08 20:50] VITALS: BP 154/87
== END 2022-04-08 20:51 | disposition home or self-care (01) ==
LOC: EDH 16:00
DX: B34.9 Viral infection, unspecified (principal); E11.9 Type 2 diabetes mellitus without complications; E66.9 Obesity, unspecified; Z20.822 Contact with and (suspected) exposure to COVID-19; Z79.84 Long term (current) use of oral hypoglycemic drugs; Z88.8 Allergy status to other drugs, medicaments and biological substances; Z90.89 Acquired absence of other organs; Z79.899 Other long term (current) drug therapy
CPT/HCPCS: 99284; 96374; 71045; 87635; 96361; 84484; 80053; 80305; 85025; 87804 ×2; 36415; 93005; 81001; C9803; J7030; J2405

== ENCOUNTER → 2022-10-09 | Outpatient (CLI) | payer BC | END | disposition home or self-care (01) | LOC: RAH 13:51 | PROVIDERS: ATTEND Nurse Practitioner Family | DX: Z12.31 Encounter for screening mammogram for malignant neoplasm of breast (principal) | CPT/HCPCS: 77067 ==

== ENCOUNTER 2022-10-26 12:16 | Emergency (ER) | payer BC ==
[~2022-10-26] VITALS: Ht 165.1 cm; Wt 86.2 kg
[2022-10-26 12:51] LABS: ADD UA MICROSCOPIC YES; APPEARANCE,URINE CLEAR (CLEAR); BILIRUBIN,URINE NEGATIVE (NEGATIVE); COLOR,URINE LIGHT-YELLOW (YELLOW); GLUCOSE, URINE (UA) >=1000 mg/dL (NEGATIVE); KETONES,URINE 20 mg/dL (NEGATIVE); LEUKOCYTE ESTERASE ,URINE NEGATIVE Leu/uL (NEGATIVE); NITRATE,URINE NEGATIVE (NEGATIVE); OCCULT BLOOD,URINE NEGATIVE (NEGATIVE); PROTEIN,URINE NEGATIVE (NEGATIVE); UROBILINOGEN,URINE 0.2 mg/dL (0.2-1.0)
[2022-10-26 12:53] LABS: RBC,URINE 0-1 /HPF (0-1); SQUAMOUS EPITHELIAL CELL,UR RARE /HPF (0-2); WBC,URINE 0-1 /HPF (0-1)
[2022-10-26 13:30] LABS: BASOPHILS # (AUTO) 0.08 K/uL (0.00-0.20); EOSINOPHILS # (AUTO) 0.11 K/uL (0.00-0.70); EOSINOPHILS % (AUTO) 1.4 % (0.0-8.0); HEMATOCRIT 44.1 % (36-48); LYMPHOCYTES % (AUTO) 25.1 % (21.0-51.0); MEAN CORPUSCULAR HEMOGLOBIN 29.4 pg (27.0-33.0); MEAN CORPUSCULAR HGB CONC 32.9 g/dL (32.0-36.0); MEAN CORPUSCULAR VOLUME 89.3 fL (79-99); MONOCYTES # (AUTO) 0.6 K/uL (0.1-1.0); MONOCYTES % (AUTO) 7.4 % (3.0-13.0); NEUTROPHILS # (AUTO) 5.2 K/uL (1.8-7.7); NEUTROPHILS % (AUTO) 63.9 % (40.0-77.0); PLATELET COUNT (AUTO) 289 K/uL (130-400); RED BLOOD CELL COUNT(AUTO) 4.94 MIL/uL (4.00-5.50); RED CELL DISTRIBUTION WIDTH 12.7 % (11.0-15.5); WHITE BLOOD COUNT (AUTO) 8.1 K/uL (4.8-10.8)
[2022-10-26 13:39] LABS: CREATININE 0.6 mg/dL (0.5-1.5)
[2022-10-26 13:44] LABS: ALBUMIN 3.4 g/dL (3.5-5.0); BILIRUBIN,TOTAL 0.4 mg/dL (0.2-1.0); TOTAL PROTEIN, SERUM 7.3 g/dL (6.0-8.3)
[2022-10-26] MEDS ORDERED: KETOROLAC 60 MG VIAL (30MG/ML) IM ONE (14:30)
[2022-10-26] MEDS ORDERED: IBUP-2070 PO (14:42)
[2022-10-26 15:12] VITALS: BP 147/80; PULSE 84; RESP 17; O2SAT 99
== END 2022-10-26 16:17 | disposition home or self-care (01) ==
LOC: EDH 12:16
DX: R10.31 Right lower quadrant pain (principal); R50.9 Fever, unspecified; E11.9 Type 2 diabetes mellitus without complications; E66.01 Morbid (severe) obesity due to excess calories; Z68.31 Body mass index [BMI] 31.0-31.9, adult; Z90.89 Acquired absence of other organs; Z90.710 Acquired absence of both cervix and uterus; Z79.84 Long term (current) use of oral hypoglycemic drugs; Z79.899 Other long term (current) drug therapy
CPT/HCPCS: 99284; 80053; 85025; 81001; 36415; 96372; J1885

== ENCOUNTER 2022-11-11 16:07 | Emergency (ER) | payer BC ==
[~2022-11-11] VITALS: Ht 152.4 cm; Wt 86.2 kg
[~2022-11-11 16:07] MED LIST changes: +IBUP-2070 PO
[2022-11-11 17:34] LABS: BASOPHILS # (AUTO) 0.09 K/uL (0.00-0.20); BASOPHILS % (AUTO) 0.8 % (0.0-5.0); EOSINOPHILS % (AUTO) 0.9 % (0.0-8.0); HEMATOCRIT 42.8 % (36-48); IMMATURE GRANULOCYTE ABSOLUTE 0.04 K/uL (0-1); LYMPHOCYTES # (AUTO) 2.8 K/uL (1.0-4.8); LYMPHOCYTES % (AUTO) 24.7 % (21.0-51.0); MEAN CORPUSCULAR HGB CONC 33.9 g/dL (32.0-36.0); MEAN CORPUSCULAR VOLUME 88.6 fL (79-99); MONOCYTES # (AUTO) 1.4 K/uL (0.1-1.0); MONOCYTES % (AUTO) 12.5 % (3.0-13.0); NEUTROPHILS % (AUTO) 60.8 % (40.0-77.0); PLATELET COUNT (AUTO) 308 K/uL (130-400); RED BLOOD CELL COUNT(AUTO) 4.83 MIL/uL (4.00-5.50); RED CELL DISTRIBUTION WIDTH 13.5 % (11.0-15.5); WHITE BLOOD COUNT (AUTO) 11.5 K/uL (4.8-10.8)
[2022-11-11 17:52] LABS: CREATININE 1.5 mg/dL (0.5-1.5)
[2022-11-11] MEDS ORDERED: 0.9%NACL 1000ML 1,000 ML IV ONE (22:30)
[2022-11-11 23:53] LABS: APPEARANCE,URINE CLOUDY (CLEAR); BILIRUBIN,URINE NEGATIVE (NEGATIVE); COLOR,URINE YELLOW (YELLOW); GLUCOSE, URINE (UA) >=1000 mg/dL (NEGATIVE); KETONES,URINE NEGATIVE (NEGATIVE); LEUKOCYTE ESTERASE ,URINE NEGATIVE Leu/uL (NEGATIVE); NITRATE,URINE NEGATIVE (NEGATIVE); OCCULT BLOOD,URINE NEGATIVE (NEGATIVE); PROTEIN,URINE 20 mg/dL (NEGATIVE); UROBILINOGEN,URINE 0.2 mg/dL (0.2-1.0)
[2022-11-11 23:54] LABS: ADD UA MICROSCOPIC YES
[2022-11-12 00:12] LABS: RBC,URINE 0-1 /HPF (0-1); WBC,URINE 0-1 /HPF (0-1)
[2022-11-12 00:13] LABS: BACTERIA,URINE Rare /HPF (None Seen); SQUAMOUS EPITHELIAL CELL,UR Few /HPF (0-2)
[2022-11-12] MEDS ORDERED: 0.9%NACL 1000ML 1,000 ML IV ONE (00:30)
[2022-11-12] MEDS ORDERED: INSULIN HUMULIN R 100 UNIT/ML 3ML IV ONE (01:00)
[2022-11-12] MEDS ORDERED: METF-444 PO (02:01)
[2022-11-12 02:11] VITALS: BP 128/77; PULSE 94; RESP 18; O2SAT 99
== END 2022-11-12 02:13 | disposition home or self-care (01) ==
LOC: EDH 16:07
DX: E11.65 Type 2 diabetes mellitus with hyperglycemia (principal); R10.9 Unspecified abdominal pain; F12.90 Cannabis use, unspecified, uncomplicated; E66.9 Obesity, unspecified; Z79.01 Long term (current) use of anticoagulants; Z79.52 Long term (current) use of systemic steroids; Z79.84 Long term (current) use of oral hypoglycemic drugs; Z88.8 Allergy status to other drugs, medicaments and biological substances; Z68.37 Body mass index [BMI] 37.0-37.9, adult
CPT/HCPCS: 99284; 96374; 80048; 83690; 85025; 82948; 81001; 36415; 74176; J7030 ×2; J1815

== ENCOUNTER → 2023-01-20 | Outpatient (CLI) | payer BC ==
[~2023-01-20] MED LIST changes: -DEXA6TAB PO; -LEVO-70 PO; +METF-444 PO; -METR375C2 PO; -ONDA4TAB10 PO
== END | disposition home or self-care (01) ==
LOC: RAH 09:47
PROVIDERS: ATTEND Surgery
DX: K83.8 Other specified diseases of biliary tract (principal)
CPT/HCPCS: 78226; A9537

== ENCOUNTER 2023-02-20 06:11 | Day surgery (SDC) | payer BC ==
[2023-02-18 10:05] LABS: BASOPHILS # (AUTO) 0.07 K/uL (0.00-0.20); BASOPHILS % (AUTO) 1.1 % (0.0-5.0); EOSINOPHILS # (AUTO) 0.05 K/uL (0.00-0.70); EOSINOPHILS % (AUTO) 0.8 % (0.0-8.0); HEMATOCRIT 44.2 % (36-48); IMMATURE GRANULOCYTE ABSOLUTE 0.02 K/uL (0-1); LYMPHOCYTES # (AUTO) 1.7 K/uL (1.0-4.8); LYMPHOCYTES % (AUTO) 25.8 % (21.0-51.0); MEAN CORPUSCULAR HEMOGLOBIN 28.5 pg (27.0-33.0); MEAN CORPUSCULAR HGB CONC 32.6 g/dL (32.0-36.0); MEAN CORPUSCULAR VOLUME 87.5 fL (79-99); MONOCYTES # (AUTO) 0.5 K/uL (0.1-1.0); MONOCYTES % (AUTO) 7.4 % (3.0-13.0); NEUTROPHILS # (AUTO) 4.3 K/uL (1.8-7.7); NEUTROPHILS % (AUTO) 64.6 % (40.0-77.0); PLATELET COUNT (AUTO) 229 K/uL (130-400); RED BLOOD CELL COUNT(AUTO) 5.05 MIL/uL (4.00-5.50); RED CELL DISTRIBUTION WIDTH 13.8 % (11.0-15.5); WHITE BLOOD COUNT (AUTO) 6.6 K/uL (4.8-10.8)
[2023-02-18 10:16] LABS: ALBUMIN 3.7 g/dL (3.5-5.0); BILIRUBIN,TOTAL 0.4 mg/dL (0.2-1.0); CREATININE 0.6 mg/dL (0.5-1.5); POTASSIUM 3.7 mmol/L (3.5-5.1); TOTAL PROTEIN, SERUM 7.4 g/dL (6.0-8.3)
[2023-02-18 10:28] VITALS: BP 129/82; PULSE 77; RESP 16
[~2023-02-20] VITALS: Ht 165.1 cm; Wt 83.5 kg
[2023-02-20] VITALS (15 sets, daily range): BP systolic 118–146; BP diastolic 65–80; PULSE 62–83; RESP 14–18
[~2023-02-20 06:11] MED LIST changes: +AEC81 PO; -AMOX1TAB16 PO; -APIX2.5T PO; -ATOR10TA69 PO; +ATOR40TA71 PO; -DAPA10TA PO; +EMPA25TA PO; -GLYB5TAB9 PO; -IBUP-2070 PO; -LACT10PA5 PO; -METF-444 PO; -METF-446 PO; +TIRZ12.5 SQ
[2023-02-20] MEDS ORDERED: 0.9%NACL 1000ML 1,000 ML IV ONE (06:34)
[2023-02-20] MEDS: CEFAZOLIN SODIUM 2 GM VIAL ONE ×2 (06:40→07:55)
[2023-02-20] MEDS ORDERED: DICY-20 PO (06:42)
[2023-02-20] MEDS ORDERED: ONDANSETRON 4MG INJ ONE (07:23)
[2023-02-20] MEDS ORDERED: PROPOFOL 10 MG/ML 20ML VIAL IV ONE (07:23)
[2023-02-20] MEDS ORDERED: ROCURONIUM BROMIDE 10MG/1ML 5ML VL ONE (07:24)
[2023-02-20] MEDS ORDERED: FENTANYL CITRATE PF 50 MCG/1 ML 2ML VIAL ONE ×2 (07:24→08:46)
[2023-02-20] MEDS ORDERED: MIDAZOLAM HCL 1 MG/ML 2ML VIAL ONE (07:24)
[2023-02-20] MEDS ORDERED: BUPIVACAINE/PF 0.25% 30ML VIAL IJ ONE (07:34)
[2023-02-20] MEDS ORDERED: ROPIVACAINE 0.5% 5MG/ML 30ML ONE (07:39)
[2023-02-20] MEDS ORDERED: IOHEXOL-350 50ML VIAL IV ONE (07:45)
[2023-02-20] MEDS ORDERED: PHENYLEPHRINE HCL 10 MG/ML 1ML VIAL IV ONE (07:58)
[2023-02-20] MEDS ORDERED: GLYCOPYRROLATE 0.2 MG/ML 5 ML VIAL ONE (08:41)
[2023-02-20] MEDS ORDERED: NEOSTIGMINE METHYLSULFATE 1MG/ML IV ONE (08:41)
== END 2023-02-20 10:45 | disposition home or self-care (01) ==
LOC: DAH 06:11
PROVIDERS: ATTEND Surgery
DX: K80.44 Calculus of bile duct with chronic cholecystitis without obstruction (principal); E11.9 Type 2 diabetes mellitus without complications; K76.0 Fatty (change of) liver, not elsewhere classified; E78.5 Hyperlipidemia, unspecified; Z79.899 Other long term (current) drug therapy; Z86.73 Personal history of transient ischemic attack (TIA), and cerebral infarction without residual deficits; Z90.710 Acquired absence of both cervix and uterus; Z90.89 Acquired absence of other organs; Z80.0 Family history of malignant neoplasm of digestive organs; Z79.82 Long term (current) use of aspirin; Z79.01 Long term (current) use of anticoagulants
CPT/HCPCS: 80053; 85025; 86850; 86900; 86901; 36415; 93005; 47563; 82948 ×2; 88304; A6260; A4663; J7030 ×2; A4215 ×2; C1758; J3010 ×2; J0665; J3490 ×2; J2250; J2704; J2405; J2710; J2795; J2371; Q9967; J0690; C1769 ×3; A4649 ×2; A4930; A4223; A4222; A4221; A4600; G0168